=== PATIENT | female | born 1960 | race Caucasian/White ===

== ENCOUNTER 2018-01-14 18:11 | Emergency (ER) | payer MEDICAID, SELFPAY ==
[2018-01-14 18:46] VITALS: RESP 18; TEMP 98.2; O2SAT 97
--- NOTE | 2018-01-14 19:46 | ED PDOC ---
HPI: Female Pain Time Seen by Provider: 01/14/18 18:33 Chief Complaint (Nursing): Female Genitourinary Chief Complaint (Provider): Dysuria History Per: Patient History/Exam Limitations: no limitations Onset/Duration Of Symptoms: Days (week and a half) Current Symptoms Are (Timing): Still Present Associated Symptoms: Chills, Other (body aches) Additional Complaint(s): 57 year old male with a history of htn, dm and hypothyroid presents to the ED with dysuria that started a week and a half ago associated lower abdominal pain. Patient was seen at [facility], where she was diagnosed with UTI and prescribed macrobid. On Wednesday, she saw Dr. Addison, her urologist, because symptoms did not resolve. He changed her medication to Keflex. Patient states symptoms persisted and she developed left back pain. She now feels a sense of mass in vagina. Patient has body aches and chills, but denies fever, nausea, vomiting, diarrhea, or any other medical complaints. PMD: none provided Past Medical History Reviewed: Historical Data, Nursing Documentation, Vital Signs Vital Signs: Last Vital Signs Temp 98.2 F 01/14/18 18:38 Pulse 87 01/14/18 18:38 Resp 18 01/14/18 18:38 BP 155/98 H 01/14/18 18:38 Pulse Ox 97 01/14/18 18:38 - Medical History PMH: Diabetes, HTN, Hypothyroidism - Surgical History Surgical History: No Surg Hx - Family History Family History: States: Hypertension - Social History Current smoker - smoking cessation education provided: No Ex-Smoker (has not smoked in the last 12 months): No Alcohol: None Drugs: Denies - Home Medications Home Medications: Ambulatory Orders Medication Instructions Recorded Phenazopyridine [Phenazopyridine 200 mg PO Q12 PRN #20 tab 01/14/18 HCl] traMADol [Ultram] 50 mg PO TID PRN #15 tab 01/14/18 - Allergies Allergies/Adverse Reactions: Allergies Allergy/AdvReac Type Severity Reaction Status Date / Time iodine Allergy RASH Verified 01/14/18 18:35 Review of Systems ROS Statement: Except As Marked, All Systems Reviewed And Found Negative Constitutional: Positive for: Chills Gastrointestinal: Positive for: Abdominal Pain (lower) Musculoskeletal: Positive for: Back Pain (left) Physical Exam - Reviewed Nursing Documentation Reviewed: Yes Vital Signs Reviewed: Yes - Physical Exam Appears: Positive for: In Acute Distress (mild painful) Head Exam: Positive for: ATRAUMATIC, NORMOCEPHALIC Skin: Positive for: Warm, Dry Eye Exam: Positive for: EOMI, PERRL ENT: Negative for: Pharyngeal Erythema, Tonsillar Exudate Neck: Positive for: Painless ROM, Supple Cardiovascular/Chest: Positive for: Regular Rate, Rhythm. Negative for: Murmur Respiratory: Positive for: Normal Breath Sounds. Negative for: Wheezing Gastrointestinal/Abdominal: Positive for: Soft, Tenderness (suprapubic tenderness to palpation ). Negative for: Mass, Guarding, Rebound Pelvic Exam: Positive for: No Masses (external), Other (external exam performed with Sarah RN at bedside, possible uterine prolapse) Back: Positive for: L CVA Tenderness (mild) Extremity: Positive for: Normal ROM. Negative for: Deformity Lymphatic: Negative for: Adenopathy Neurologic/Psych: Positive for: Alert. Negative for: Motor/Sensory Deficits - Laboratory Results Result Diagrams: 01/14/18 20:28 01/14/18 20:28 - ECG O2 Sat by Pulse Oximetry: 97 (RA) Pulse Ox Interpretation: Normal Medical Decision Making Medical Decision Making: Time: 19:12 Initial Impression: urinary symptoms questionable uterine prolapse Differential diagnoses include but are not limited to: uti, cystitis, pyelonephritis bacteremia, and kidney stones Initial Plan: --Abdomen and pelvis CT --CMP --Lact acid --CBC with differentials --Chlamydia --Toradol 15 mg IVP --Blood culture --Urine culture --Urinalysis Time: 20:[address]: FINDINGS: Lung bases: Unremarkable. No mass. No consolidation. ABDOMEN: Liver: Diffuse hepatic steatosis. Gallbladder and bile ducts: Unremarkable. No calcified stones. No ductal dilation. Pancreas: Unremarkable. No ductal dilation. Spleen: Unremarkable. No splenomegaly. Adrenals: Unremarkable. No mass. Kidneys and ureters: Several foci of right renal cortical thinning. No calculi. No hydronephrosis. No perinephric fluid. Stomach and bowel: Unremarkable. No obstruction. No mucosal thickening. PELVIS: Appendix: No findings to suggest acute appendicitis. Bladder: Unremarkable. No stones. Reproductive: Hysterectomy. ABDOMEN and PELVIS: Intraperitoneal space: Unremarkable. No free air. No significant fluid collection. Bones/joints: Tarlov cysts in the sacral spine.Degenerative changes are present in the lower lumbar spine. No acute fracture. No dislocation. Soft tissues: Unremarkable. Vasculature: Unremarkable. No abdominal aortic aneurysm. Lymph nodes: Unremarkable. No enlarged lymph nodes. IMPRESSION: 1. No acute obstructive or inflammatory process in the abdomen or pelvis. 2. Diffuse hepatic steatosis. Labs demonstrate hyperglycemia, without anion gap and without ketones in UA. UA also unremarkable other than glucose. Symptoms possibly due to urethral irritation without infection, possibly due to urethral prolapse. She reports that she has had evaluation for prolapse and advised surgery but was not cleared by internal controls analyst. Advised to continue follow up. Symptomatic treatment for now. Scribe Attestation: Documented by Tamanna Vargas, acting as a scribe for Courtney Daly MD Provider Scribe Attestation: All medical record entries made by the Scribe were at my direction and personally dictated by me. I have reviewed the chart and agree that the record accurately reflects my personal performance of the history, physical exam, medical decision making, and the department course for this patient. I have also personally directed, reviewed, and agree with the discharge instructions and disposition. Disposition - Clinical Impression Clinical Impression: Dysuria, Urethral prolapse Counseled Patient/Family Regarding: Studies Performed, Diagnosis, Need For Followup, Rx Given - Disposition Referrals: Lisandro Wilson MD [Staff Provider] - Jean Dinero MD [Medical Doctor] - Disposition: Routine/Home Disposition Time: 21:00 Condition: STABLE Additional Instructions: ESTA MUY IMPORTANTE COMPLETAR ARROYO ANTIOBIOTICOS VISITA ARROYO CARDIOLOGO Y CIRUJANO POR MAS EVALUACIONES Y TRATIMIENTE Prescriptions: Phenazopyridine [Phenazopyridine HCl] 200 mg PO Q12 PRN #20 tab PRN Reason: Dysuria traMADol [Ultram] 50 mg PO TID PRN #15 tab PRN Reason: SEVERE PAIN ONLY Instructions: Hyperglycemia, Adult, Vaginal Prolapse, Dysuria, Adult (DC) Print Language: MARSHALLESE
[2018-01-14 20:37] LABS: BASO # 0.1 K/uL (0.0-0.2); EOS # 0.1 K/uL (0.0-0.7); EOS % 1.5 % (0.0-4.0); HEMOGLOBIN 14.1 g/dL (12.0-16.0); LYMPH # 2.8 K/uL (1.0-4.3); LYMPH % 41.4 % (20.0-40.0); MEAN CELL VOLUME 87.2 fl (81.0-99.0); MEAN CORPUSCULAR HEMOGLOBIN 29.6 pg (27.0-31.0); MEAN CORPUSCULAR HGB CONC 33.9 g/dL (33.0-37.0); MEAN PLATELET VOLUME 8.4 fl (7.2-11.7); MONO # 0.5 K/uL (0.0-0.8); MONO % 6.9 % (0.0-10.0); NEUT # 3.4 K/uL (1.8-7.0); NEUT % 49.2 % (50.0-75.0); NRBC % 0.1 % (0.0-0.0); RBC 4.78 Mil/uL (3.80-5.20); RED CELL DISTRIBUTION WIDTH 12.9 % (11.5-14.5); WHITE BLOOD COUNT 6.9 K/uL (4.8-10.8)
[2018-01-14 20:47] LABS: ALB/GLOB RATIO 1.5 (1.0-2.1); ALBUMIN 4.3 g/dL (3.5-5.0); ALT/SGPT 25 U/L (9-52); AST/SGOT 29 U/L (14-36); BLOOD UREA NITROGEN 28 mg/dl (7-17); CALCIUM 9.5 mg/dL (8.4-10.2); GFR AFRICAN-AMERICAN > 60; GFR NON-AFRICAN AMERICAN > 60
[2018-01-14 20:48] LABS: SQUAMOUS EPITHIAL < 1 /hpf (0-5); URINE BACTERIA RARE (<OCC); URINE BILIRUBIN NEGATIVE (NEGATIVE); URINE BLOOD NEGATIVE (NEGATIVE); URINE CALCIUM OXALATE CRYSTALS FEW /hpf (<OCC); URINE CLARITY SLIGHTY-CLOUDY (Clear); URINE COLOR YELLOW (YELLOW); URINE GLUCOSE (UA) >=500 mg/dL (Normal); URINE LEUKOCYTE ESTERASE NEG Leu/uL (Negative); URINE PROTEIN NEGATIVE (NEGATIVE); URINE UROBILINOGEN 0.2-1.0 mg/dL (0.2-1.0)
[2018-01-14 22:13] VITALS: BP 139/90; PULSE 80
--- NOTE | 2018-01-15 08:46 | CT ---
Date of service: 01/14/2018 PROCEDURE: CT Abdomen and Pelvis without intravenous contrast HISTORY: LEFT flank pain dysuria COMPARISON: None. TECHNIQUE: Without contrast.. Contrast dose: 0 Radiation dose: Total exam DLP = 833.84 mGy-cm. This CT exam was performed using one or more of the following dose reduction techniques: Automated exposure control, adjustment of the mA and/or kV according to patient size, and/or use of iterative reconstruction technique. FINDINGS: LOWER THORAX: Unremarkable. LIVER: Mild diffuse hepatic steatosis. Focal fatty sparing is seen adjacent to the gallbladder fossa. The extent of steatosis is decreased compared to the prior CT examination no mass. No biliary dilatation. Smooth contour. GALLBLADDER AND BILE DUCTS: Gallbladder collapsed. No calcified gallstones. No pericholecystic fluid. PANCREAS: Unremarkable. No gross lesion or ductal dilatation. SPLEEN: Unremarkable. ADRENALS: Unremarkable. No mass. KIDNEYS AND URETERS: There is some lobulation of the right kidney, of no clinical significance. No renal mass, calculus or hydronephrosis. No ureteral calculus or hydroureter. No perinephric fluid. VASCULATURE: Unremarkable. No aortic aneurysm. BOWEL: Unremarkable. No obstruction. No gross mural thickening. APPENDIX: Not definitely identified. No secondary findings to suggest appendicitis. PERITONEUM: Very small umbilical hernia containing mesenteric fat. Mild diastases recti at the most inferior anterior abdominal wall. No ascites. No pneumoperitoneum. LYMPH NODES: Unremarkable. No enlarged lymph nodes. BLADDER: Unremarkable. REPRODUCTIVE: Status post hysterectomy BONES: No acute fracture. OTHER FINDINGS: None. IMPRESSION: No evidence of urinary calculus or urinary tract obstruction. Minor findings as above. The preliminary findings for this examination were reported by [facility] at 8:05 p.m. on 01/14/2018. There is concurrence of this report with the preliminary findings.
== END 2018-01-14 22:15 | disposition home or self-care (01) ==
LOC: H.ER 18:11
DX: R30.0 Dysuria (principal); N36.8 Other specified disorders of urethra; E03.9 Hypothyroidism, unspecified; E11.65 Type 2 diabetes mellitus with hyperglycemia; I10 Essential (primary) hypertension; K76.0 Fatty (change of) liver, not elsewhere classified
CPT/HCPCS: 74176; 80053; 81003; 82948; 83605; 85025; 87040; 87086; 87491; 87591; 96374; 99284; J1885

== ENCOUNTER 2018-01-15 04:24 | Emergency (ER) | payer MEDICAID ==
[2018-01-15 04:49] VITALS: RESP 16; O2SAT 97
[2018-01-15] MEDS ORDERED: Oxycodone/Acetaminophen 5/325 mg Tab PO ONE (05:11)
[2018-01-15] MEDS ORDERED: Oxycodone/Acetaminophen 5/325 mg Tab ONE (05:25)
--- NOTE | 2018-01-15 05:31 | ED PDOC ---
HPI: Abdomen Time Seen by Provider: 01/15/18 04:59 Chief Complaint (Nursing): Abdominal Pain Chief Complaint (Provider): Abdominal Pain History Per: Patient History/Exam Limitations: no limitations Onset/Duration Of Symptoms: Days Current Symptoms Are (Timing): Still Present Location Of Pain/Discomfort: RLQ, LLQ Quality Of Discomfort: Unable To Describe Additional Complaint(s): 57 y/o male with a PMHx of DM, HTN, Asthma and bladder prolapse presents to the ED complaining of lower abdominal pelvic pain, onset a couple years ago. Patient has seen Dr. Addison and Dr. Wilson in the past for frequent UTIs and was diagnosed with bladder prolapse. Patient reports of having multiple surgeries done on her bladder. Patient reports she is now on Keflex for a UTI. Patient was seen and treated here yesterday for similar symptoms. Patient's labs and CT scans resulted normally. Patient was discharged yesterday with a prescription for Tramadol. Patient is now requesting strong pain medications and surgical and medical clearance. Patient attempted to get surgery scheduled as soon as possible but was unable to do to an unknown reason. PMD: Dr. Castañeda Past Medical History Reviewed: Historical Data, Nursing Documentation, Vital Signs Vital Signs: Last Vital Signs Temp 98.2 F 01/15/18 05:38 Pulse 72 01/15/18 05:38 Resp 16 01/15/18 05:38 BP 168/82 H 01/15/18 05:38 Pulse Ox 97 01/15/18 05:45 - Medical History PMH: Asthma, Diabetes, HTN, Hypothyroidism Other PMH: Bladder Prolapse - Surgical History Surgical History: No Surg Hx - Family History Family History: States: Hypertension - Home Medications Home Medications: Ambulatory Orders Medication Instructions Recorded Phenazopyridine [Phenazopyridine 200 mg PO Q12 PRN #20 tab 01/14/18 HCl] traMADol [Ultram] 50 mg PO TID PRN #15 tab 01/14/18 oxyCODONE/Acetaminophen [Percocet 1 ea PO Q6 PRN #12 tab 01/15/18 5/325 mg Tab] - Allergies Allergies/Adverse Reactions: Allergies Allergy/AdvReac Type Severity Reaction Status Date / Time iodine Allergy RASH Verified 01/14/18 18:35 Review of Systems ROS Statement: Except As Marked, All Systems Reviewed And Found Negative Gastrointestinal: Positive for: Abdominal Pain Physical Exam - Reviewed Nursing Documentation Reviewed: Yes Vital Signs Reviewed: Yes - Physical Exam Appears: Positive for: Non-toxic, No Acute Distress Head Exam: Positive for: ATRAUMATIC, NORMOCEPHALIC Skin: Positive for: Normal Color, Warm, Dry Eye Exam: Positive for: Normal appearance, EOMI, PERRL Neck: Positive for: Normal, Painless ROM Cardiovascular/Chest: Positive for: Regular Rate, Rhythm. Negative for: Murmur Respiratory: Positive for: Normal Breath Sounds. Negative for: Respiratory Distress Gastrointestinal/Abdominal: Positive for: Normal Exam, Soft, Tenderness ( Suprapubic ) Back: Positive for: Normal Inspection. Negative for: L CVA Tenderness, R CVA Tenderness, Vertebral Tenderness Extremity: Positive for: Normal ROM. Negative for: Pedal Edema, Deformity Neurologic/Psych: Positive for: Alert, Oriented. Negative for: Motor/Sensory Deficits - ECG O2 Sat by Pulse Oximetry: 97 (RA) Pulse Ox Interpretation: Normal - Progress Re-evaluation Time: 05:30 Condition: Re-examined, Improved Medical Decision Making Medical Decision Making: Time: 510 Impression: Chronic Pelvic Pain Plan: -- Pyridium 200 mg PO -- Percocet 5/325 mg 1 Tab PO 01/14/2018 ER VISIT LABS AND SCAN RESULTS Time: 20:[address]: FINDINGS: Lung bases: Unremarkable. No mass. No consolidation. ABDOMEN: Liver: Diffuse hepatic steatosis. Gallbladder and bile ducts: Unremarkable. No calcified stones. No ductal dilation. Pancreas: Unremarkable. No ductal dilation. Spleen: Unremarkable. No splenomegaly. Adrenals: Unremarkable. No mass. Kidneys and ureters: Several foci of right renal cortical thinning. No calculi. No hydronephrosis. No perinephric fluid. Stomach and bowel: Unremarkable. No obstruction. No mucosal thickening. PELVIS: Appendix: No findings to suggest acute appendicitis. Bladder: Unremarkable. No stones. Reproductive: Hysterectomy. ABDOMEN and PELVIS: Intraperitoneal space: Unremarkable. No free air. No significant fluid collection. Bones/joints: Tarlov cysts in the sacral spine.Degenerative changes are present in the lower lumbar spine. No acute fracture. No dislocation. Soft tissues: Unremarkable. Vasculature: Unremarkable. No abdominal aortic aneurysm. Lymph nodes: Unremarkable. No enlarged lymph nodes. IMPRESSION: 1. No acute obstructive or inflammatory process in the abdomen or pelvis. 2. Diffuse hepatic steatosis. Labs demonstrate hyperglycemia, without anion gap and without ketones in UA. UA also unremarkable other than glucose. Scribe Attestation: Documented by Gaby Avelar acting as a scribe for Dr. Ant Goetz MD. Provider Scribe Attestation: All medical record entries made by the Scribe were at my direction and personally dictated by me. I have reviewed the chart and agree that the record accurately reflects my personal performance of the history, physical exam, medical decision making, and the department course for this patient. I have also personally directed, reviewed, and agree with the discharge instructions and disposition. Disposition - Clinical Impression Clinical Impression: Pelvic pain, Dysuria - Patient ED Disposition Is Patient to be Admitted: No Doctor Will See Patient In The: Office Counseled Patient/Family Regarding: Studies Performed, Diagnosis, Need For Followup - Disposition Referrals: Nikole Addison MD [Medical Doctor] - Lisandro Wilson MD [Staff Provider] - Disposition Time: 05:30 Condition: GOOD Additional Instructions: Continue taking your medications as instructed. Follow up with your PCP in 2-3 days. Prescriptions: oxyCODONE/Acetaminophen [Percocet 5/325 mg Tab] 1 ea PO Q6 PRN #12 tab PRN Reason: Pain, Severe (8-10) Instructions: Chronic Pelvic Pain (DC) Forms: [facility] DEPT. Connect (Danish) Print Language: AZERI
[2018-01-15 05:39] VITALS: BP 168/82; PULSE 72; TEMP 98.2
== END 2018-01-15 05:38 | disposition home or self-care (01) ==
LOC: H.ER 04:24
DX: R10.2 Pelvic and perineal pain (principal); R30.0 Dysuria; E11.65 Type 2 diabetes mellitus with hyperglycemia; G89.29 Other chronic pain; I10 Essential (primary) hypertension; J45.909 Unspecified asthma, uncomplicated; E03.9 Hypothyroidism, unspecified